=== PATIENT | male | born 1965 | race American Indian/Alaskan Native ===

== ENCOUNTER 2019-03-26 12:59 | Emergency (ER) | payer OTHER ==
[2019-03-26] MEDS ORDERED: BUPIVACAINE/PF (0.5%) 5 MG/1 ML 10 ML VIAL INFILTRATI ONE (15:08)
[2019-03-26] MEDS ORDERED: LIDOCAINE (1%) 10 MG/1 ML VIAL 20 ML MDV INFILTRATI ONE (15:08)
[2019-03-26] MEDS ORDERED: IBUPROFEN 600 MG TAB PO ONE ×3 (15:08→15:11)
--- NOTE | 2019-03-26 15:10 | Event Note ---
ED Screening Note Date of service: 03/26/19 ED Screening Note: This initial assessment/diagnostic orders/clinical plan/treatment(s) is/are subject to change based on patients health status, clinical progression and re- assessment by fellow clinical providers in the ED. Further treatment and workup at subsequent clinical providers discretion. Patient/guardian urged not to elope from the ED as their condition may be serious if not clinically assessed and managed. Initial orders include:
--- NOTE | 2019-03-26 16:04 | XRay Report ---
RIGHT LITTLE FINGER 3 VIEWS INDICATION / CLINICAL INFORMATION: Crush injury of right little finger. COMPARISON: None available. FINDINGS: BONES and JOINT(S): There is a transverse fracture through the tip of the distal phalanx of the littl e finger. No dislocation. No significant arthritis. There is evidence of prior trauma to the fifth me tacarpal. SOFT TISSUES: Mild soft tissue swelling is noted along the little finger. There is a laceration of th e tip of the little finger at the level of the fracture. ADDITIONAL FINDINGS: None. IMPRESSION: Acute open fracture of the right little finger. Signer Name: Jacky Suggs MD Signed: 03/26/2019 4:00 PM Workstation Name: [id number]
[2019-03-26 19:49] VITALS: BP 140/99
[2019-03-26] MEDS ORDERED: ceFAZolin/NS 1 GM/50 ML 1 GM/50 ML BAG IV ONE (20:02)
[2019-03-26] MEDS ORDERED: oxyCODONE /ACETAMINOPHEN 5-325MG TAB PO ONE (20:03)
--- NOTE | 2019-03-26 20:03 | Emergency Department Report ---
ED General Adult HPI - General Chief complaint: Extremity Injury, Upper Stated complaint: FRACTURED PINKY Time Seen by Provider: 03/26/19 19:39 Source: patient Mode of arrival: Ambulatory Limitations: No Limitations - History of Present Illness Initial comments: 53-year-old -[place] male presents with complaints of right little finger injury and laceration right little finger injury and laceration x today. Patient reports while at work, his finger was smashed in a forklift. He states his tetanus shot was updated today at an urgent care and he was sent here. He rates his pain as a 8/10. He denies being on any blood thinners or other injuries. -: Sudden Severity scale (0 -10): 8 Quality: aching Consistency: constant Improves with: immobilization Worsens with: movement Associated Symptoms: denies other symptoms - Related Data Previous Rx's Medication Instructions Recorded Last Taken Type Acetaminophen/Codeine [Tylenol 1 tab PO Q8H PRN #6 tab 03/26/19 Unknown Rx /Codeine # 3 tab] Ibuprofen [Motrin 600 MG tab] 600 mg PO Q8H PRN #21 tablet 03/26/19 Unknown Rx Allergies Allergy/AdvReac Type Severity Reaction Status Date / Time No Known Allergies Allergy Unverified 03/26/19 13:13 ED Review of Systems ROS: Stated complaint: FRACTURED PINKY Other details as noted in HPI Constitutional: denies: chills, fever, malaise Musculoskeletal: arthralgia Skin: as per HPI. denies: change in color Neurological: denies: numbness, paresthesias ED Past Medical Hx - Past Medical History Previous Medical History?: No - Surgical History Past Surgical History?: No - Social History Smoking Status: Never Smoker Substance Use Type: None - Medications Home Medications: Home Medications Medication Instructions Recorded Confirmed Last Taken Type Acetaminophen/Codeine [Tylenol 1 tab PO Q8H PRN #6 tab 03/26/19 Unknown Rx /Codeine # 3 tab] Ibuprofen [Motrin 600 MG tab] 600 mg PO Q8H PRN #21 tablet 03/26/19 Unknown Rx ED Physical Exam - General Limitations: No Limitations General appearance: alert, in no apparent distress - Head Head exam: Present: atraumatic, normocephalic - Respiratory Respiratory exam: Absent: respiratory distress - Cardiovascular Cardiovascular Exam: Present: regular rate - Extremities Exam Extremities exam: Present: other (~3 cm laceration noted to distal right little finger with exposure of nailbed) ED Course Vital Signs 03/26/19 03/26/19 03/26/19 13:59 15:11 19:45 Temperature 98.0 F Pulse Rate 67 63 Respiratory 16 18 Rate Blood Pressure 135/89 140/99 O2 Sat by Pulse 99 99 Oximetry 03/26/19 22:43 Temperature Pulse Rate 61 Respiratory 16 Rate Blood Pressure O2 Sat by Pulse 98 Oximetry - Reevaluation(s) Reevaluation #1: 03/26/19 20:03 finger placed in saline/betadine soak x 25 minutes ED Medical Decision Making - Radiology Data Radiology results: report reviewed FINDINGS: BONES and JOINT(S): There is a transverse fracture through the tip of the distal phalanx of the little finger. No dislocation. No significant arthritis. There is evidence of prior trauma to the fifth metacarpal. SOFT TISSUES: Mild soft tissue swelling is noted along the little finger. There is a laceration of the tip of the little finger at the level of the fracture. ADDITIONAL FINDINGS: None. IMPRESSION: Acute open fracture of the right little finger. 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 X-ray shows a transverse fracture through the tip of the distal phalanx of the little finger. Laceration was repaired without difficulty. Discussed in detail wound care instructions and need for follow-up with orthopedics tomorrow. Given there was an open fracture, patient was given 1 g of Ancef and will discharge home with a prescription for Keflex and mupirocin-called into [facility] at [address] [facility]. Discussed strict return precautions in great detail with patient verbalizes understanding. Critical care attestation.: If time is entered above; I have spent that time in minutes in the direct care of this critically ill patient, excluding procedure time. ED Disposition Clinical Impression: Open fracture of phalanx of right little finger Qualifiers: Encounter type: initial encounter Phalanx: distal Fracture alignment: displaced Qualified Code(s): S62.636B - Displaced fracture of distal phalanx of right little finger, initial encounter for open fracture Disposition: DC-01 TO HOME OR SELFCARE Is pt being admited?: No Condition: Stable Instructions: Suture Care (ED), Laceration (ED), Finger Fracture (ED) Additional Instructions: Turn to the emergency department in 10 days or follow-up with Dr. Reed, orthopedics, for suture removal in 10 days. Prescriptions: Ibuprofen [Motrin 600 MG tab] 600 mg PO Q8H PRN #21 tablet PRN Reason: Pain Acetaminophen/Codeine [Tylenol /Codeine # 3 tab] 1 tab PO Q8H PRN #6 tab PRN Reason: Pain , Severe (7-10) Referrals: ASHU REED MD [Staff Physician] - 24 Hours Forms: Work/School Release Form(ED)
[2019-03-26] MEDS ORDERED: BUPIVACAINE/PF (0.25%) 2.5 MG/ML 10 ML VIAL INFILTRATI ONE (20:52)
[2019-03-26] MEDS ORDERED: BACITRACIN/POLYMYXIN B OINT 28.35 GM TP ONE (21:37)
[2019-03-26] MEDS ORDERED: NEOMY 3.5 MG/BACIT 400 UNITS/POLY B 5000 UNITS/GM OINT PACKET TP ONE (21:38)
== END 2019-03-26 22:42 | disposition home or self-care (01) ==
LOC: ED 12:59
DX: S62.636B Displaced fracture of distal phalanx of right little finger, initial encounter for open fracture (principal); Z79.899 Other long term (current) drug therapy; W22.8XXA Striking against or struck by other objects, initial encounter; Y93.89 Activity, other specified; Y92.89 Other specified places as the place of occurrence of the external cause; Y99.8 Other external cause status
CPT/HCPCS: 73140; 96365; 99284; J0690; A6250